=== PATIENT | male | born 1970 | race Caucasian/White ===

== ENCOUNTER 2019-01-10 08:56 | Emergency (ER) | payer MEDICAID ==
[~2019-01-10] VITALS: Ht 157.5 cm; Wt 65.0 kg
[2019-01-10] MEDS ORDERED: IBUPROFEN 600MG TABLET PO ONE (09:30)
[2019-01-10 09:33] VITALS: BP 125/84
== END 2019-01-10 09:37 | disposition home or self-care (01) ==
LOC: ER 08:56
DX: M54.5 Low back pain (principal)
CPT/HCPCS: 99283

== ENCOUNTER 2021-02-04 19:01 | Emergency (ER) | payer MEDICAID ==
[~2021-02-04] VITALS: Ht 157.5 cm; Wt 69.0 kg
[2021-02-04] MEDS ORDERED: ACETAMINOPHEN 325MG TABLET PO STA (19:36)
[2021-02-04] MEDS ORDERED: SODIUM CHLORIDE 0.9% 1,000 ML IV ONE (19:45)
[2021-02-04 20:11] LABS: BASOPHILS % 0.1 % (0.0-2.0); HEMATOCRIT. 43.8 % (42.0-52.0); HEMOGLOBIN. 15.3 g/dL (14.0-18.0); MEAN CORPUSCULAR HEMOGLOBIN 31.6 pg (28.0-32.0); MEAN CORPUSCULAR VOLUME 90.5 fL (80.0-94.0); MEAN PLATELET VOLUME 8.8 fl (7.4-10.4); MONOCYTES % 8.7 % (2.0-8.0); NEUTROPHILS % 67.2 % (40.0-76.0); PLATELET 133 x1000/uL (130-400); RED BLOOD CELL COUNT 4.84 mill/uL (4.7-6.1); RED CELL DISTRIBUTION WIDTH 12.9 % (11.6-14.6)
[2021-02-04 20:16] LABS: CHLORIDE 102 mEq/L (98-107)
[2021-02-04 21:38] VITALS: BP 131/81
== END 2021-02-04 21:42 | disposition home or self-care (01) ==
LOC: ER 19:35
DX: Z20.822 Contact with and (suspected) exposure to COVID-19 (principal)
CPT/HCPCS: 36415; 80053; 85025; 96360; 99283; J7030

== ENCOUNTER 2021-02-09 06:04 | Inpatient (IN) | payer MEDICAID ==
[~2021-02-09] VITALS: Ht 157.5 cm; Wt 61.8 kg
[2021-02-09 09:00] LABS: CHLORIDE 109 mEq/L (98-107)
[2021-02-09 09:10] LABS: EOSINOPHILS % 0.2 % (0.0-5.0); HEMATOCRIT. 43.7 % (42.0-52.0); MEAN CORPUSCULAR HEMOGLOBIN 31.1 pg (28.0-32.0); MEAN CORPUSCULAR VOLUME 90.6 fL (80.0-94.0); MEAN PLATELET VOLUME 8.3 fl (7.4-10.4); MONOCYTES % 10.8 % (2.0-8.0); PLATELET 246 x1000/uL (130-400); RED BLOOD CELL COUNT 4.82 mill/uL (4.7-6.1); RED CELL DISTRIBUTION WIDTH 13.1 % (11.6-14.6)
[2021-02-09 09:52] LABS: BG BASE EXCESS -0.9 mmol/L (-2.0-2.0); BG CARBOXYHEMOGLOBIN 0.4 % (0.5-1.5); BG DEOXYHEMOGLOBIN 5.9 % (0.0-5.0); BG FRACTION INSPIRED OXYGEN 21; BG HCO3 ACT 22.8 mmol/L (22.0-26.0); BG METHEMOGLOBIN 0.1 % (0.0-1.5); BG OXYGEN SATURATION 94.1 % (92.0-98.5); BG OXYHEMOGLOBIN 93.6 % (94.0-97.0); BG PCO2 35.4 mmHg (35.0-45.0); BG PH 7.427 (7.350-7.450); BG SAMPLE SITE LEFT RADIAL; BG TOTAL HEMOGLOBIN 15.4 g/dL (12.0-18.0); BG VENT MODE ROOM AIR
[2021-02-09] MEDS ORDERED: DIPHENHYDRAMINE 50MG/ML VIAL IV PRN (11:15)
[2021-02-09] MEDS ORDERED: DOCUSATE SODIUM 100MG CAPSULE PO PRN (11:15)
[2021-02-09] MEDS ORDERED: MAGNESIUM/ALUMINUM HYDROXIDE/SIMETHICONE 30ML UDC PO PRN (11:15)
[2021-02-09] MEDS ORDERED: ONDANSETRON HCL 4MG/2ML INJ IV PRN (11:15)
[2021-02-09] MEDS ORDERED: CLONIDINE 0.1MG TABLET PO PRN (11:15)
[2021-02-09] MEDS ORDERED: NA PHOS,M-B/NA PHOS,DI-BA ENEMA 118ML PR PRN (11:15)
[2021-02-09] MEDS ORDERED: LORAZEPAM 0.5MG TABLET PO PRN (11:15)
[2021-02-09] MEDS ORDERED: ACETAMINOPHEN 650MG/20.3ML UDC GT PRN (11:15)
[2021-02-09] MEDS ORDERED: HYDROCODONE/ACETAMINOPHEN 5/325MG TABLET PO PRN (11:15)
[2021-02-09] MEDS ORDERED: GUAIFENESIN 200MG/10ML SUGAR FREE UDC PO PRN (11:15)
[2021-02-09] MEDS ORDERED: ACETAMINOPHEN 650MG SUPP PR PRN (11:15)
[2021-02-09] MEDS ORDERED: CEFTRIAXONE 1 G PREMIX 50 ML IV SCH (12:00)
[2021-02-09] MEDS: ENOXAPARIN 40MG/0.4ML SYR SUBCUT SCH (12:58)
[2021-02-09] MEDS: DEXAMETHASONE 10 MG/ML VIAL IV SCH (12:58)
[2021-02-09] MEDS ORDERED: AZITHROMYCIN 500 MG in DEXT 5% WATER 250 ML IV SCH (13:00)
[2021-02-09 16:19] LABS: CREATINE KINASE 37 IU/L (39-308)
[2021-02-09 16:20] LABS: CREATINE KINASE MB FRACTION < 1.0 ng/mL (0.5-3.6)
[2021-02-09 16:30] LABS: D-DIMER 0.39 mg/L FEU (<0.50); PROTHROMBIN TIME 10.6 sec (9.6-11.0)
[2021-02-09 20:00] VITALS: BP 128/89
[2021-02-09] MEDS ORDERED: NALOXONE HCL 0.4MG/ML VIAL IV PRN (20:00)
[2021-02-09 20:41] VITALS: BP 128/89
[2021-02-09 20:48] VITALS: BP 128/89
[2021-02-09] MEDS: FAMOTIDINE 20MG TABLET PO SCH (21:26)
[2021-02-09] MEDS: ALBUTEROL 6.7GM HFA INHALER ORI SCH (22:51)
[2021-02-09 23:26] LABS: CREATINE KINASE 33 IU/L (39-308)
[2021-02-09 23:27] LABS: CREATINE KINASE MB FRACTION < 1.0 ng/mL (0.5-3.6)
[2021-02-10] VITALS: BP 115/80
[2021-02-10 04:00] VITALS: BP 109/76
[2021-02-10] MEDS: ALBUTEROL 6.7GM HFA INHALER ORI SCH ×4 (05:03→21:34)
[2021-02-10 06:27] LABS: BASOPHILS % 0.2 % (0.0-2.0); HEMATOCRIT. 42.7 % (42.0-52.0); HEMOGLOBIN. 14.8 g/dL (14.0-18.0); LYMPHOCYTES % 16.7 % (20.0-50.0); MEAN CORPUSCULAR HEMOGLOBIN 31.5 pg (28.0-32.0); MEAN CORPUSCULAR VOLUME 90.8 fL (80.0-94.0); MEAN PLATELET VOLUME 8.1 fl (7.4-10.4); MONOCYTES % 9.8 % (2.0-8.0); NEUTROPHILS % 73.3 % (40.0-76.0); PLATELET 297 x1000/uL (130-400); RED BLOOD CELL COUNT 4.71 mill/uL (4.7-6.1); RED CELL DISTRIBUTION WIDTH 12.8 % (11.6-14.6)
[2021-02-10 07:09] LABS: CHLORIDE 109 mEq/L (98-107)
[2021-02-10 07:22] LABS: LDL CHOLESTEROL 98 mg/dL (5-100)
[2021-02-10 07:25] LABS: HDL CHOLESTEROL 27 mg/dL (40-59); T4 FREE 1.54 ng/dL (0.76-1.46)
[2021-02-10] MEDS: DEXAMETHASONE 10 MG/ML VIAL IV SCH (08:13)
[2021-02-10] MEDS: ENOXAPARIN 40MG/0.4ML SYR SUBCUT SCH (08:14)
[2021-02-10] MEDS: CEFTRIAXONE 1,000 MG in DEXTROSE 5% WATER 50 ML IV SCH (11:37)
[2021-02-10 12:00] VITALS: BP 120/83
[2021-02-10] MEDS ORDERED: DILTIAZEM HCL 30MG TABLET PO NR (15:00)
[2021-02-10 16:00] VITALS: BP 123/92
[2021-02-10] MEDS ORDERED: AZITHROMYCIN 500 MG in DEXT 5% WATER 250 ML IV SCH (16:00)
[2021-02-10 20:00] VITALS: BP 111/77
[2021-02-10] MEDS: FAMOTIDINE 20MG TABLET PO SCH (21:33)
[2021-02-11] VITALS: BP 104/74
[2021-02-11 04:00] VITALS: BP 105/72
[2021-02-11] MEDS: ALBUTEROL 6.7GM HFA INHALER ORI SCH ×3 (06:00→17:02)
[2021-02-11 08:00] VITALS: BP 111/80
[2021-02-11] MEDS: ENOXAPARIN 40MG/0.4ML SYR SUBCUT SCH (08:41)
[2021-02-11] MEDS: DEXAMETHASONE 10 MG/ML VIAL IV SCH (08:41)
[2021-02-11] MEDS: CEFTRIAXONE 1,000 MG in DEXTROSE 5% WATER 50 ML IV SCH (11:11)
[2021-02-11] MEDS: DILTIAZEM HCL 30MG TABLET PO SCH ×2 (11:11→20:47)
[2021-02-11 12:00] VITALS: BP 115/88
[2021-02-11] MEDS: AZITHROMYCIN 500 MG TABLET PO SCH (15:31)
[2021-02-11] MEDS ORDERED: DILT30TA38 MT (15:48)
[2021-02-11 16:00] VITALS: BP 121/82
[2021-02-11 20:00] VITALS: BP 125/91
[2021-02-11] MEDS: FAMOTIDINE 20MG TABLET PO SCH (20:46)
[2021-02-12] VITALS: BP 118/84
[2021-02-12 04:00] VITALS: BP 111/79
[2021-02-12] MEDS: ALBUTEROL 6.7GM HFA INHALER ORI SCH ×2 (06:00→11:12)
[2021-02-12 08:00] VITALS: BP 131/95
[2021-02-12] MEDS: ENOXAPARIN 40MG/0.4ML SYR SUBCUT SCH (08:50)
[2021-02-12] MEDS: DEXAMETHASONE 10 MG/ML VIAL IV SCH (08:50)
[2021-02-12] MEDS: DILTIAZEM HCL 30MG TABLET PO SCH (08:50)
[2021-02-12] MEDS: CEFTRIAXONE 1,000 MG in DEXTROSE 5% WATER 50 ML IV SCH (11:12)
[2021-02-12] MEDS: AZITHROMYCIN 500 MG TABLET PO SCH (11:12)
[2021-02-12 12:00] VITALS: BP 126/86
[2021-02-12 19:57] VITALS: BP 133/92
[2021-02-12 20:09] VITALS: BP 133/92
== END 2021-02-12 21:00 | disposition home or self-care (01) | DRG 720 ==
LOC: ER 06:04 → MICUSO 11:13 → SUPCPDRO 12:41 → 7WST 19:39
PROVIDERS: ADMIT Internal Medicine; ATTEND Internal Medicine
DX: A41.89 Other specified sepsis (principal); J96.01 Acute respiratory failure with hypoxia; J12.82 Pneumonia due to coronavirus disease 2019; U07.1 COVID-19; R74.01 Elevation of levels of liver transaminase levels; R00.0 Tachycardia, unspecified
CPT/HCPCS: 36415; 36600; 71045; 71275; 76700; 80053; 80061; 82375; 82550; 82553; 82728; 82805; 83615; 84145; 84439; 84443; 84484; 85025; 85379; 85384; 86141; 93005; 93970; 97162; 99285; J0456; J0696; J1100; J1650; J7040; J7060; U0003; U0005